=== PATIENT | female | born 1965 | race African-American/Black ===

== ENCOUNTER 2017-02-03 11:14 | Outpatient (RCR) | payer MEDICAID | END 2017-05-04 | disposition home or self-care (01) | LOC: CARD 11:14 | PROVIDERS: ATTEND Nurse Practitioner Family | DX: R55 Syncope and collapse (principal) | CPT/HCPCS: 93225; 93226 ==

== ENCOUNTER → 2017-02-03 | Outpatient (CLI) | payer SELFPAY | LOC: CARD 11:10 | PROVIDERS: ATTEND Nurse Practitioner Family | DX: R55 Syncope and collapse (principal) | CPT/HCPCS: 93306 ==

== ENCOUNTER → 2017-05-15 | Outpatient (CLI) | payer MEDICAID ==
[~2017-05-15] VITALS: Ht 154.9 cm; Wt 53.1 kg
[~2017-05-15] MED LIST: CATHETER FLUSH 10 ML SYR IV PRN
[2017-05-15 09:06] VITALS: BP 125/76
--- NOTE | 2017-05-15 15:56 | STRESS TEST ---
DATE OF SERVICE: 05/15/2017 EXERCISE MYOVIEW STRESS TEST REFERRING PHYSICIAN: Dr. Lalita Vogt, [facility]. FINDINGS: Baseline heart rate is 53. Baseline blood pressure 106/68. Baseline EKG is sinus rhythm with no ischemic changes. SUMMARY: The patient was injected with 10.96 mCi of technetium-99 Myoview and the resting images were obtained. With peak stress level, she was injected with 31.1 mCi of technetium-99 Myoview. She was able to exercise for a total of 9 minutes and 30 seconds on standard Sulaiman protocol. With peak exercise level, blood pressure was 199/92. EKG was showing [address] depression in II, III, aVF, V4 and V5. During recovery, heart rate and blood pressure returned to baseline. EKG returned to baseline. The resting and stress images were reviewed and compared in the short axis, horizontal long axis, and vertical long axis views. Review of the images showed breast attenuation with no significant ischemia or infarction on SPECT images. SSS is 2, SDS 2, TID value 1.05. On the gated images, the left ventricle appeared to be normal size with normal contractility. Calculated ejection fraction 56%. CONCLUSION: 1. Good exercise tolerance, a total of 9 minutes 30 seconds on standard Sulaiman protocol, total of 11.1 METS achieving 95% of maximum expected heart rate. 2. Nondiagnostic EKG changes with exercise, returned to baseline during recovery. 3. Hypertensive response to exercise, returned to baseline during recovery. 4. Breast attenuation with mild apical thinning with no significant ischemia or infarction on SPECT images. 5. Normal left ventricular size with normal contractility, calculated ejection fraction 56%. Job ID: [id number] DocumentID: [id number] Dictated Date: 05/15/2017 12:32:13 Lead Net Software Developer Date: 05/15/2017 15:55:55 Dictated By: PARTH CALERO MD
== END ==
LOC: CARD 07:55
PROVIDERS: ATTEND Internal Medicine Cardiovascular Disease
DX: R07.9 Chest pain, unspecified (principal)
CPT/HCPCS: 78452; 93017

== ENCOUNTER → 2017-05-17 | Outpatient (CLI) | payer MEDICAID ==
[2017-05-17] VITALS (25 sets, daily range): BP systolic 104–142; BP diastolic 72–95
[~2017-05-17] VITALS: Ht 154.9 cm; Wt 53.1 kg
[~2017-05-17] MED LIST changes: -CATHETER FLUSH 10 ML SYR IV PRN; +NS IV 1000 ML 1,000 ML ONE
--- NOTE | 2017-05-17 16:04 | Cardiology Tilt Table Test ---
LAURENCE CAMARGO 05/17/17 1604: Cardiology-Tilt Table Test Tilt Table Test Date 05/17/17 Baseline Vitals Vital Signs Date Time Temp Pulse Resp B/P (MAP) Pulse Ox O2 Delivery O2 Flow Rate FiO2 05/17/17 14:43 45 16 116/78 (91) 97 Vital Signs VS - Last 72 Hours, by Label 05/17/17 05/17/17 05/17/17 05/17/17 14:43 15:09 15:11 15:12 Pulse 45 50 59 50 Resp 16 20 B/P (MAP) 116/78 (91) 116/80 (92) 138/82 (100) 130/76 (94) Pulse Ox 97 99 99 100 05/17/17 05/17/17 05/17/17 05/17/17 15:13 15:14 15:15 15:16 Pulse 49 49 49 48 B/P (MAP) 116/79 (91) 122/72 (89) 123/79 (94) 124/77 (93) Pulse Ox 99 99 99 99 05/17/17 05/17/17 05/17/17 05/17/17 15:17 15:20 15:21 15:22 Pulse 45 43 67 54 B/P (MAP) 123/84 (97) 113/76 (88) 132/94 (107) 142/86 (104) Pulse Ox 98 99 99 99 05/17/17 05/17/17 05/17/17 05/17/17 15:24 15:24 15:26 15:28 Pulse 56 54 58 55 B/P (MAP) 117/82 (94) 113/78 (90) 104/75 (85) 107/86 (93) Pulse Ox 98 98 99 98 05/17/17 05/17/17 05/17/17 05/17/17 15:29 15:30 15:31 15:33 Pulse 54 52 50 47 Resp 18 B/P (MAP) 111/75 (87) 112/83 (93) 109/83 (92) 114/77 (89) Pulse Ox 98 98 100 97 05/17/17 05/17/17 05/17/17 05/17/17 15:34 15:35 15:36 15:37 Pulse 49 51 47 49 B/P (MAP) 115/87 (96) 119/77 (91) 118/85 (96) 125/82 (96) Pulse Ox 98 98 98 99 05/17/17 05/17/17 15:39 15:40 Pulse 50 44 B/P (MAP) 124/79 (94) 118/95 (103) Pulse Ox 98 100 Patient was tilted to 75 degrees for [10] minutes, then returned to supine position, given [2] sublingual nitroglycerin tablets, then tilted again to 75 degrees for [15] minutes. During test, patient was: asymptomatic In Conclusion;: Negative Tilt Table Test Patient had underlying sinus bradycardia with HR in the mid 40's. Consider event monitor for further monitoring. This is Laurence Beckford PA-C as a scribe for Dr. Rea. PARTH REA MD 05/17/17 1624: Cardiology-Tilt Table Test Tilt Table Test Negative tilt table test despite Baseline bradycardia that persisted throughout test LAURENCE CAMARGO May 17, 2017 16:04 PARTH REA MD May 17, 2017 16:24
== END ==
LOC: CARD 14:16
PROVIDERS: ATTEND Internal Medicine Cardiovascular Disease
DX: R07.9 Chest pain, unspecified (principal)
CPT/HCPCS: 93660

== ENCOUNTER 2018-03-12 07:17 | Emergency (ER) | payer MEDICAID ==
[~2018-03-12] VITALS: Ht 154.9 cm; Wt 53.1 kg
--- OUTSIDE RECORDS SUMMARY | 2018-03-12 07:23 | XMS REPORT ---
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 Active 729868397 Problem Menopausal hot flushes N95.1 Active 993321444 Problem Syncope, unspecified syncope type R55 Active 686155661 Problem Bradycardia R00.1 Active 20007207 Problem Tobacco abuse counseling Z71.6 Active 650873936 Problem Tobacco abuse Z72.0 Active 804790444 ALLERGIES No Information ENCOUNTERS Encounter Location Date Diagnosis [facility] [id number] [place] [address] Jan, [facility] [id number] [place] [address] 41890- 8670 Dec, [facility] [id number] [place] [address]- 978[address] Dec, S/P placement of cardiac pacemaker Z95.0 and Post-operative pain G89.18 [facility] [id number] [place] [address]15- [address]357 Dec, [facility] [address] [address] Dec, Postsurgical cardiac pacemaker in situ Z95.0 [facility] [id number] [place] [address]11- [address] Nov, [facility] [address] [place] [address] Oct, [facility] [address] [address] Sep, Bradycardia R00.1 ; Seizure R56.9 and Menopausal hot flushes N95.1 [place] [address] [address] August, Hypercholesteremia E78.00 ; Bradycardia R00.1 ; Anxiety F41.9 ; Absence seizure G40.A09 ; Tobacco abuse Z72.0 and Tobacco abuse counseling Z71.6 [place] [address] [address] Apr, [place] [address] [address] Apr, Chest pain in adult R07.9 ; Syncope, unspecified syncope type R55 ; Tobacco use Z72.0 and Hyperlipidemia, unspecified hyperlipidemia type E78.5 [facility] [address] [address] Feb, Encounter to establish care Z76.89 ; Syncope, unspecified syncope type R55 ; Bradycardia R00.1 ; Anxiety F41.9 and Hypercholesteremia E78.00 [place] [id number] [place] [address] 18[address]- 7862 Jan, [facility] [address] [address] Jan, Menopause syndrome N95.1 ; Absence seizure G40.A09 and Syncope, unspecified syncope type R55 [facility] [address] [address] Dec, [facility] [address] [address] Dec, Anxiety F41.9 [facility] [address] [address]- [address] Jun, [facility] [address] [facility] [id number] [address] Jun, [facility] [address] [id number] [address] Jun, [facility] [address] [facility] [id number], [place] [address] Jun, [facility] [address] [id number] [address] Apr, IMMUNIZATIONS No Known Immunizations SOCIAL HISTORY Never Assessed REASON FOR VISIT Requests return call PLAN OF CARE VITAL SIGNS MEDICATIONS Unknown Medications RESULTS No Results PROCEDURES No Known procedures INSTRUCTIONS MEDICATIONS ADMINISTERED No Known Medications MEDICAL (GENERAL) HISTORY Type Description Date Medical History uterine cancer( 1985) Medical History menopause Surgical History tubal ligation 2000 Surgical History section 2000 Surgical History Fx R ankle 2003 Surgical History pacemaker 2018 Hospitalization History Surgery(s)/Childbirth(s) only
--- OUTSIDE RECORDS SUMMARY | 2018-03-12 07:23 | XMS REPORT ---
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 Active 162344315 Problem Menopausal hot flushes N95.1 Active 334613116 Problem Syncope, unspecified syncope type R55 Active 335456176 Problem Bradycardia R00.1 Active 12641602 Problem Tobacco abuse counseling Z71.6 Active 515275431 Problem Tobacco abuse Z72.0 Active 167899005 ALLERGIES No Known Allergies ENCOUNTERS Encounter Location Date Diagnosis [place] [address] [address] Jan, S/P placement of cardiac pacemaker Z95.0 ; Post-operative pain G89.18 and Trapezius muscle spasm M62.838 [place] [address] [place] [address]79- [address] Dec, [facility] [id number] [place] [address]45- 6178 Dec, S/P placement of cardiac pacemaker Z95.0 and Post-operative pain G89.18 [facility] [id number] [place] [address]- [address] Dec, [facility] [id number] [place] [address]90- 1547 Dec, Postsurgical cardiac pacemaker in situ Z95.0 [place] [address] [place] [address] Nov, [facility] [id number] [place] [address]132- 3259 Oct, [place] [id number] [place] [address] 93442- 2763 Sep, Bradycardia R00.1 ; Seizure R56.9 and Menopausal hot flushes N95.1 [place] [address] [address]- [address] August, Hypercholesteremia E78.00 ; Bradycardia R00.1 ; Anxiety F41.9 ; Absence seizure G40.A09 ; Tobacco abuse Z72.0 and Tobacco abuse counseling Z71.6 [place] [id number] [place] [address] 47516- 7266 Apr, [place] [address] [address] Apr, Chest pain in adult R07.9 ; Syncope, unspecified syncope type R55 ; Tobacco use Z72.0 and Hyperlipidemia, unspecified hyperlipidemia type E78.5 [place] [address] [address]- [address] Feb, Encounter to establish care Z76.89 ; Syncope, unspecified syncope type R55 ; Bradycardia R00.1 ; Anxiety F41.9 and Hypercholesteremia E78.00 [place] [id number] [place] [address] 96831- 8505 Jan, [place] [id number] [place] [address] 39787- 7876 Jan, Menopause syndrome N95.1 ; Absence seizure G40.A09 and Syncope, unspecified syncope type R55 [place] [address] [address] [id number] [place] [address] 34135- 9090 Dec, [facility] [address] [address] Dec, Anxiety F41.9 [facility] [address] [facility] [id number] [address] Jun, [facility] [address] [facility] [id number] [address] Jun, [facility] [address] [facility] [id number] [address] Jun, [facility] [address] [id number] [address] Jun, [facility] [address] [facility] [id number] [address] Apr, IMMUNIZATIONS No Known Immunizations SOCIAL HISTORY Never Assessed REASON FOR VISIT Anxiety.-awoods PLAN OF CARE Activity Details Follow Up 3 Months, prn Reason:CHM/w/ Carmina VITAL SIGNS Height 61 in 2017-12-26 Weight 115.8 lbs 2017-12-26 Temperature 98.6 degrees Fahrenheit 2017-12-26 Heart Rate 62 bpm 2017-12-26 Respiratory Rate 18 2017-12-26 BMI 21.88 kg/m2 2017-12-26 Blood pressure systolic 102 mmHg 2017-12-26 Blood pressure diastolic 64 mmHg 2017-12-26 MEDICATIONS Medication Instructions Dosage Frequency Start Date End Date Duration Status Paxil 20 mg Orally Once a day 1 tablet in the morning 24h Sep, 30 day(s) Active Ibuprofen 800 MG Orally Three times a day 1 tablet with food or milk as needed 8h Jan, 30 days Active Zonisamide 100 mg Orally Once a day at bedtime 3 capsule Active Baclofen 10 mg Orally Three times a day 1 tablet with food or milk as needed 8h Dec, Dec, 14 days Active Hydrocodone-Acetaminophen 5-325 MG Orally every 6 hrs 1 tablet as needed 6h Dec, Dec, 14 days Active RESULTS No Results PROCEDURES No Known procedures INSTRUCTIONS MEDICATIONS ADMINISTERED No Known Medications MEDICAL (GENERAL) HISTORY Type Description Date Medical History uterine cancer( 1985) Medical History menopause Medical History bradycardia- had pacemaker placed in November for this Surgical History tubal ligation 2000 Surgical History section 2000 Surgical History Fx R ankle 2003 Surgical History pacemaker 2018 Hospitalization History Surgery(s)/Childbirth(s) only Hospitalization History pacemaker placed- one night stay Nov 2017
--- OUTSIDE RECORDS SUMMARY | 2018-03-12 07:23 | XMS REPORT ---
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 Active 056166467 Problem Menopausal hot flushes N95.1 Active 287896095 Problem Syncope, unspecified syncope type R55 Active 759176808 Problem Bradycardia R00.1 Active 08255608 Problem Tobacco abuse counseling Z71.6 Active 166633253 Problem Tobacco abuse Z72.0 Active 155099861 ALLERGIES No Known Allergies ENCOUNTERS Encounter Location Date Diagnosis [place] [address] [address] Jan, S/P placement of cardiac pacemaker Z95.0 ; Post-operative pain G89.18 and Trapezius muscle spasm M62.838 [place] [address] [place] [address]80- [address] Dec, [facility] [place] [id number] [place] [address]353- 2609 Dec, S/P placement of cardiac pacemaker Z95.0 and Post-operative pain G89.18 [facility] [place] [id number] [place] [address] 15148- 8851 Dec, [facility] [place] [id number] [place] [address] 54141- 6712 Dec, Postsurgical cardiac pacemaker in situ Z95.0 [place] [address] [place] [address] 12380- 9874 Nov, [facility] [place] [id number] [place] [address] 58964- 9270 Oct, [facility] [place] [id number] [place] [address] 01228- 2373 Sep, Bradycardia R00.1 ; Seizure R56.9 and Menopausal hot flushes N95.1 [place] [id number] [place] [address] 63919- 36[address] August, Hypercholesteremia E78.00 ; Bradycardia R00.1 ; Anxiety F41.9 ; Absence seizure G40.A09 ; Tobacco abuse Z72.0 and Tobacco abuse counseling Z71.6 [place] [id number] [place] [address] 96090- 7721 Apr, [place] [address] [address]- [address] Apr, Chest pain in adult R07.9 ; Syncope, unspecified syncope type R55 ; Tobacco use Z72.0 and Hyperlipidemia, unspecified hyperlipidemia type E78.5 [place] [id number] [place] [address]15- 3032 Feb, Encounter to establish care Z76.89 ; Syncope, unspecified syncope type R55 ; Bradycardia R00.1 ; Anxiety F41.9 and Hypercholesteremia E78.00 [place] [id number] [place] [address] 04793- 4895 Jan, [place] [id number] [place] [address] 40336- 9761 Jan, Menopause syndrome N95.1 ; Absence seizure G40.A09 and Syncope, unspecified syncope type R55 [place] [id number] [place] [address] 85925- 6402 Dec, [facility] [id number] [place] [address]65 -[address]117 Dec, Anxiety F41.9 [facility] [place] [address] [facility] [id number] [place] [address]- [address] Jun, [facility] [place] [address] [facility] [id number] [address] Jun, [facility] [place] [address] [facility] [id number], [place] [address]- [address] Jun, [facility] [place] [address] [facility] [id number], [place] [address] Jun, [facility] [place] [address] [facility] [id number], [place] [address]- [address]28 Apr, IMMUNIZATIONS No Known Immunizations SOCIAL HISTORY Never Assessed REASON FOR VISIT Internal Transfer- BARBARA King PLAN OF CARE Activity Details Follow Up 1wk Reason:trigger pt injections VITAL SIGNS Height 61 in 2018-01-18 Weight 103.6 lbs 2018-01-18 Temperature 98.4 degrees Fahrenheit 2018-01-18 Heart Rate 82 bpm 2018-01-18 Respiratory Rate 18 2018-01-18 BMI 19.57 kg/m2 2018-01-18 Blood pressure systolic 132 mmHg 2018-01-18 Blood pressure diastolic 74 mmHg 2018-01-18 MEDICATIONS Medication Instructions Dosage Frequency Start Date End Date Duration Status Zonisamide 100 mg Orally Once a day at bedtime 3 capsule Active Hydrocodone-Acetaminophen 5-325 MG Orally 2 times a day 1 tablet as needed 12h Jan, Jan, 14 days Active Ibuprofen 800 MG Orally Three times a day 1 tablet with food or milk as needed 8h Jan, Jan, 10 days Active Baclofen 10 MG Orally 3 times a day 1 tablet with food or milk 8h 24 Jan 10 days Active RESULTS No Results PROCEDURES No [...]
[2018-03-12] MEDS ORDERED: NS IV 1000 ML 1,000 ML IV ONE (07:24)
--- OUTSIDE RECORDS SUMMARY | 2018-03-12 07:24 | XMS REPORT ---
Author Author DOUGLASNICOLA ReedELE Organization [facility] Address [address] [place] [address] Care Team Providers Care Production Grader Name Role Phone KARRI DOUGLAS Unavailable PROBLEMS Type Condition ICD9-CM Code LGX22-LV Code Onset Dates Condition Status SNOMED Code Problem Anxiety F41.9 Active 11087016 Problem Hypercholesteremia E78.00 Active 09015623 Problem Menopausal hot flushes N95.1 Active 222124155 Problem Tobacco abuse counseling Z71.6 Active 365464792 Problem Bradycardia R00.1 Active 43888829 Problem Absence seizure G40.A09 Active 27602389 Problem Tobacco abuse Z72.0 Active 589796128 Problem Syncope, unspecified syncope type R55 Active 851674852 ALLERGIES No Known Allergies ENCOUNTERS Encounter Location Date Diagnosis [place] [address] [address] Dec, [place] [address] [address] Oct, [place] [address] [address] Sep, Bradycardia R00.1 ; Seizure R56.9 and Menopausal hot flushes N95.1 [facility] [id number] [place] [address]- [address] August, Hypercholesteremia E78.00 ; Bradycardia R00.1 ; Anxiety F41.9 ; Absence seizure G40.A09 ; Tobacco abuse Z72.0 and Tobacco abuse counseling Z71.6 [place] [id number] [place] [address]32- 85[address] Apr, [place] [address] [address]- [address] Apr, Chest pain in adult R07.9 ; Syncope, unspecified syncope type R55 ; Tobacco use Z72.0 and Hyperlipidemia, unspecified hyperlipidemia type E78.5 [facility] [id number] [place] [address]62- 8858 Feb, Encounter to establish care Z76.89 ; Syncope, unspecified syncope type R55 ; Bradycardia R00.1 ; Anxiety F41.9 and Hypercholesteremia E78.00 [place] [address] [address]- [address] Jan, [place] [address] [address]- [address] Jan, Menopause syndrome N95.1 ; Absence seizure G40.A09 and Syncope, unspecified syncope type R55 [place] [address] [address]- [address] Dec, [facility] [address] [address] Dec, Anxiety F41.9 [place] [address] [address]- 4003 Jun, [place] [address] [id number] [place] [address]- 4027 Jun, [place] [address] [address] [id number] [place] [address] 26[address]- 8485 Jun, [place] [address] [address]- 4098 Jun, [place] [address] [address] [id number] [place] [address] 81542- 5590 Apr, IMMUNIZATIONS No Known Immunizations SOCIAL HISTORY Never Assessed REASON FOR VISIT cholesterol follow up, needs labs drawn per Dr. Travis. Daly, RN PLAN OF CARE Activity Details Follow Up 3 Months, prn Reason:CHM/Anxiety VITAL SIGNS Height 61 in 2017-08-17 Weight 111.1 lbs 2017-08-17 Temperature 98.1 degrees Fahrenheit 2017-08-17 Heart Rate 58 bpm 2017-08-17 Respiratory Rate 18 2017-08-17 BMI 20.99 kg/m2 2017-08-17 Blood pressure systolic 102 mmHg 2017-08-17 Blood pressure diastolic 64 mmHg 2017-08-17 MEDICATIONS Medication Instructions Dosage Frequency Start Date End Date Duration Status Zonisamide 100 mg Orally Once a day at bedtime 2 capsule Active Ibuprofen 800 MG Orally Three times a day 1 tablet with food or milk as needed 8h Active RESULTS No Results PROCEDURES No Known procedures INSTRUCTIONS MEDICATIONS ADMINISTERED No Known Medications MEDICAL (GENERAL) HISTORY Type Description Date Medical History uterine cancer( 1985) Medical History menopause Surgical History tubal ligation 2000 Surgical History section 2000 Surgical History Fx R ankle 2004 Hospitalization History Surgery(s)/Childbirth(s) only
--- OUTSIDE RECORDS SUMMARY | 2018-03-12 07:24 | XMS REPORT ---
Author Author KARRI DOUGLAS Organization [facility] Address [address] [place] [address] Care Team Providers Care Trade Show Manager Name Role Phone KARRI DOUGLAS Unavailable PROBLEMS Type Condition ICD9-CM Code DRS84-EQ Code Onset Dates Condition Status SNOMED Code Problem Anxiety F41.9 Active 50746425 Problem Hypercholesteremia E78.00 Active 82477339 Problem Tobacco abuse counseling Z71.6 Active 671762374 Problem Tobacco abuse Z72.0 Active 439943266 Problem Menopause syndrome N95.1 Active 650199616 Problem Absence seizure G40.A09 Active 76678639 Problem Syncope, unspecified syncope type R55 Active 475974879 Problem Bradycardia R00.1 Active 38402048 ALLERGIES No Known Allergies ENCOUNTERS Encounter Location Date Diagnosis [place] [id number] [place] [address]58- 4956 August, Hypercholesteremia E78.00 ; Bradycardia R00.1 ; Anxiety F41.9 ; Absence seizure G40.A09 ; Tobacco abuse Z72.0 and Tobacco abuse counseling Z71.6 [place] [id number] [place] [address] 40225- 2871 Apr, [place] [address] [address]38- [address] Apr, Chest pain in adult R07.9 ; Syncope, unspecified syncope type R55 ; Tobacco use Z72.0 and Hyperlipidemia, unspecified hyperlipidemia type E78.5 [place] [address] [address]226- [address]3 Feb, Encounter to establish care Z76.89 ; Syncope, unspecified syncope type R55 ; Bradycardia R00.1 ; Anxiety F41.9 and Hypercholesteremia E78.00 [place] [address] [address] Jan, [facility] [address] [place] [address] 09292- 9161 Jan, Menopause syndrome N95.1 ; Absence seizure G40.A09 and Syncope, unspecified syncope type R55 [facility] [address] [address] Dec, [facility] [address] [place] [address] 42090 -9991 Dec, Anxiety F41.9 [facility] [id number] [place] [address] 70941- 8580 Jun, [facility] [id number] [place] [address] 00003- 2596 Jun, [facility] [id number] [place] [address] 57012- 2539 Jun, [facility] [address] [place] [address] 04946- 1489 Jun, [facility] [id number] [place] [address] 95426- 6877 Apr, IMMUNIZATIONS No Known Immunizations SOCIAL HISTORY Never Assessed REASON FOR VISIT Establish Care---DBennettRN PLAN OF CARE Activity Details Follow Up 3 Months Reason:[facility] VITAL SIGNS Height 61 in 2017-02-16 Weight 110 lbs 2017-02-16 Temperature 98.0 degrees Fahrenheit 2017-02-16 Heart Rate 60 bpm 2017-02-16 Respiratory Rate 20 2017-02-16 BMI 20.78 kg/m2 2017-02-16 Blood pressure systolic 84 mmHg 2017-02-16 Blood pressure diastolic 62 mmHg 2017-02-16 MEDICATIONS No Known Medications RESULTS Name Result Date Reference Range Carotid Duplex 2017-02-21 PROCEDURES No Known procedures INSTRUCTIONS MEDICATIONS ADMINISTERED No Known Medications MEDICAL (GENERAL) HISTORY Type Description Date Medical History uterine cancer( 1985) Medical History menopause Surgical History tubal ligation 2000 Surgical History section 2000 Surgical History Fx R ankle 2004 Hospitalization History Surgery(s)/Childbirth(s) only
--- OUTSIDE RECORDS SUMMARY | 2018-03-12 07:24 | XMS REPORT ---
Author Author MISAEL KARRI [facility] Address [address] [place] [address] Care Team Providers Care Machine Stapler Name Role Phone KARRI DOUGLAS Unavailable PROBLEMS Type Condition ICD9-CM Code BAQ03-VB Code Onset Dates Condition Status SNOMED Code Problem Hypercholesteremia E78.00 Active 62105250 Problem Absence seizure G40.A09 Active 41701680 Problem Anxiety F41.9 Active 41396341 Problem Postsurgical cardiac pacemaker in situ Z95.0 Active 743871520 Problem Menopausal hot flushes N95.1 Active 402644085 Problem Syncope, unspecified syncope type R55 Active 447236573 Problem Bradycardia R00.1 Active 61703694 Problem Tobacco abuse counseling Z71.6 Active 607542598 Problem Tobacco abuse Z72.0 Active 626846325 ALLERGIES No Information ENCOUNTERS Encounter Location Date Diagnosis [facility] [id number] [place] [address] 77055- 3850 Jan, [facility] [id number] [place] [address] 17386- 2603 Dec, [facility] [id number] [place] [address] 90280- 4231 Dec, S/P placement of cardiac pacemaker Z95.0 and Post-operative pain G89.18 [facility] [id number] [place] [address] 18414- 0625 Dec, [facility] [address] 42641- 3032 Dec, Postsurgical cardiac pacemaker in situ Z95.0 [facility] [id number] [place] [address] 14894- 4724 Nov, [facility] [address] [place] [address]- 3546 Oct, [facility] [address] 31450- 3630 Sep, Bradycardia R00.1 ; Seizure R56.9 and Menopausal hot flushes N95.1 [place] [address] 19649- 4498 August, Hypercholesteremia E78.00 ; Bradycardia R00.1 ; Anxiety F41.9 ; Absence seizure G40.A09 ; Tobacco abuse Z72.0 and Tobacco abuse counseling Z71.6 [place] [address] 52435- 3035 Apr, [place] [address] 93472- 4659 Apr, Chest pain in adult R07.9 ; Syncope, unspecified syncope type R55 ; Tobacco use Z72.0 and Hyperlipidemia, unspecified hyperlipidemia type E78.5 [facility] [address] 35525- 1834 Feb, Encounter to establish care Z76.89 ; Syncope, unspecified syncope type R55 ; Bradycardia R00.1 ; Anxiety F41.9 and Hypercholesteremia E78.00 [place] [id number] [place] [address] 14387- 7816 Jan, [facility] [address] 34897- 8599 Jan, Menopause syndrome N95.1 ; Absence seizure G40.A09 and Syncope, unspecified syncope type R55 [facility] [address] 48530- 1754 Dec, [facility] [address] 54442 -9781 Dec, Anxiety F41.9 [facility] [address] 98681- 4242 Jun, [facility] [address] [facility] [id number] [address] Jun, [facility] [id number] Jun, [facility] [address] [facility] [id number] [address] 2352 Jun, [facility] [id number] [address]7 Apr, IMMUNIZATIONS No Known Immunizations SOCIAL HISTORY Never Assessed REASON FOR VISIT PLAN OF CARE VITAL SIGNS MEDICATIONS Unknown Medications RESULTS No Results PROCEDURES No Known procedures INSTRUCTIONS MEDICATIONS ADMINISTERED No Known Medications MEDICAL (GENERAL) HISTORY Type Description Date Medical History uterine cancer( 1985) Medical History menopause Surgical History tubal ligation 2000 Surgical History section 2000 Surgical History Fx R ankle 2004 Surgical History pacemaker 2018 Hospitalization History Surgery(s)/Childbirth(s) only
--- OUTSIDE RECORDS SUMMARY | 2018-03-12 07:24 | XMS REPORT ---
Author Author KARRI DOUGLAS Organization [facility] Address [address] [place] [address] Care Team Providers Care Predictive Maintenance Technician Name Role Phone KARRI DOUGLAS Unavailable PROBLEMS Type Condition ICD9-CM Code CJL02-KQ Code Onset Dates Condition Status SNOMED Code Problem Anxiety F41.9 Active 54793927 Problem Hypercholesteremia E78.00 Active 62794137 Problem Tobacco abuse counseling Z71.6 Active 467960502 Problem Tobacco abuse Z72.0 Active 287363803 Problem Menopause syndrome N95.1 Active 078215382 Problem Absence seizure G40.A09 Active 20617135 Problem Syncope, unspecified syncope type R55 Active 486970121 Problem Bradycardia R00.1 Active 82738329 ALLERGIES No Known Allergies ENCOUNTERS Encounter Location Date Diagnosis [place] [id number] [place] [address] 55741- 3023 August, Hypercholesteremia E78.00 ; Bradycardia R00.1 ; Anxiety F41.9 ; Absence seizure G40.A09 ; Tobacco abuse Z72.0 and Tobacco abuse counseling Z71.6 [place] [id number] [place] [address] 36601- 1179 Apr, [place] [address] 25790- 4186 Apr, Chest pain in adult R07.9 ; Syncope, unspecified syncope type R55 ; Tobacco use Z72.0 and Hyperlipidemia, unspecified hyperlipidemia type E78.5 [place] [address] 84813- 6616 Feb, Encounter to establish care Z76.89 ; Syncope, unspecified syncope type R55 ; Bradycardia R00.1 ; Anxiety F41.9 and Hypercholesteremia E78.00 [place] [address], [place] [address] Jan, [facility] [address] [place] [address] 40355- 7461 Jan, Menopause syndrome N95.1 ; Absence seizure G40.A09 and Syncope, unspecified syncope type R55 [facility] [address], [place] [address]- 3316 Dec, [facility] [id number] [place] [address] 53545 -9032 Dec, Anxiety F41.9 [facility] [id number] [place] [address] 72801- 7074 Jun, [facility] [id number] [place] [address] 92371- 7306 Jun, [facility] [id number] [place] [address] 32174- 1190 Jun, [facility] [address] [place] [address] 02930- 7309 Jun, [facility] [id number] [place] [address] 14256- 2326 Apr, IMMUNIZATIONS No Known Immunizations SOCIAL HISTORY Never Assessed REASON FOR VISIT [facility] Updated - CBowmanRN PLAN OF CARE VITAL SIGNS MEDICATIONS No Known Medications RESULTS No Results PROCEDURES No Known procedures INSTRUCTIONS MEDICATIONS ADMINISTERED No Known Medications MEDICAL (GENERAL) HISTORY Type Description Date Medical History uterine cancer( 1985) Medical History menopause Surgical History tubal ligation 2000 Surgical History section 2000 Surgical History Fx R ankle 2004 Hospitalization History Surgery(s)/Childbirth(s) only
--- OUTSIDE RECORDS SUMMARY | 2018-03-12 07:24 | XMS REPORT ---
Author Author DOUGLASKARRI Reed [facility] Address [address] [place] [address] Care Team Providers Care High School Business Teacher Name Role Phone KARRI DOUGLAS Unavailable PROBLEMS Type Condition ICD9-CM Code EXD29-UF Code Onset Dates Condition Status SNOMED Code Problem Hypercholesteremia E78.00 Active 49054927 Problem Absence seizure G40.A09 Active 42580264 Problem Anxiety F41.9 Active 72846427 Problem Postsurgical cardiac pacemaker in situ Z95.0 Active 654000452 Problem Menopausal hot flushes N95.1 Active 184496159 Problem Syncope, unspecified syncope type R55 Active 244503961 Problem Bradycardia R00.1 Active 73088118 Problem Tobacco abuse counseling Z71.6 Active 065404622 Problem Tobacco abuse Z72.0 Active 438768687 ALLERGIES No Information ENCOUNTERS Encounter Location Date Diagnosis [facility] [id number] [place] [address] 84370- 7469 Dec, [facility] [address] 45247- 4220 Dec, [facility] [id number] [place] [address] 42737- 7899 Dec, Postsurgical cardiac pacemaker in situ Z95.0 [facility] [id number] [place] [address] 02757- 2760 Nov, [facility] [id number] [place] [address] 55593- 6521 Oct, [facility] [id number] [place] [address] 38006- 4595 Sep, Bradycardia R00.1 ; Seizure R56.9 and Menopausal hot flushes N95.1 [facility] [address] [place] [address]- 1393 August, Hypercholesteremia E78.00 ; Bradycardia R00.1 ; Anxiety F41.9 ; Absence seizure G40.A09 ; Tobacco abuse Z72.0 and Tobacco abuse counseling Z71.6 [facility] [id number] [place] [address] 75787- 8902 Apr, [facility] [address] 60445- 8899 Apr, Chest pain in adult R07.9 ; Syncope, unspecified syncope type R55 ; Tobacco use Z72.0 and Hyperlipidemia, unspecified hyperlipidemia type E78.5 [place] [address] 99995- 5529 Feb, Encounter to establish care Z76.89 ; Syncope, unspecified syncope type R55 ; Bradycardia R00.1 ; Anxiety F41.9 and Hypercholesteremia E78.00 [place] [address] 45932- 5145 Jan, [facility] [address] 23174- 6196 Jan, Menopause syndrome N95.1 ; Absence seizure G40.A09 and Syncope, unspecified syncope type R55 [facility] [id number] [place] [address] 64610- 5459 Dec, [facility] [address] 43202 -5267 Dec, Anxiety F41.9 [facility] [address] 74846- 5192 Jun, [facility] [address] 81988- 4548 Jun, [facility] [address] 43730- 3746 Jun, [facility] [address] 07756- 6279 Jun, [facility] [address] [facility] [id number] [address]- 7348 Apr, IMMUNIZATIONS No Known Immunizations SOCIAL HISTORY Never Assessed REASON FOR VISIT Referral PLAN OF CARE VITAL SIGNS MEDICATIONS Unknown Medications RESULTS No Results PROCEDURES No Known procedures INSTRUCTIONS MEDICATIONS ADMINISTERED No Known Medications MEDICAL (GENERAL) HISTORY Type Description Date Medical History uterine cancer( 1985) Medical History menopause Surgical History tubal ligation 2000 Surgical History section 2000 Surgical History Fx R ankle 2004 Hospitalization History Surgery(s)/Childbirth(s) only
--- OUTSIDE RECORDS SUMMARY | 2018-03-12 07:24 | XMS REPORT ---
Author Author DOUGLASKARRI Reed Organization [facility] Address [address] [place] [address] Care Team Providers Care Body Finisher Name Role Phone KARRI DOUGLAS Unavailable PROBLEMS Type Condition ICD9-CM Code NEO24-QI Code Onset Dates Condition Status SNOMED Code Problem Anxiety F41.9 Active 60789188 Problem Hypercholesteremia E78.00 Active 63172997 Problem Menopausal hot flushes N95.1 Active 928052986 Problem Tobacco abuse counseling Z71.6 Active 195992739 Problem Bradycardia R00.1 Active 84170591 Problem Absence seizure G40.A09 Active 50073705 Problem Tobacco abuse Z72.0 Active 607150265 Problem Syncope, unspecified syncope type R55 Active 874471003 ALLERGIES No Known Allergies ENCOUNTERS Encounter Location Date Diagnosis [place] [id number] [place] [address] 71776- 0083 Dec, [place] [address] 29514- 3756 Dec, [place] [id number] [place] [address] 44403- 9121 Nov, [place] [id number] [place] [address] 18733- 7276 Oct, [place] [id number] [place] [address] 28033- 3115 Sep, Bradycardia R00.1 ; Seizure R56.9 and Menopausal hot flushes N95.1 [facility] [address] 21069- 5686 August, Hypercholesteremia E78.00 ; Bradycardia R00.1 ; Anxiety F41.9 ; Absence seizure G40.A09 ; Tobacco abuse Z72.0 and Tobacco abuse counseling Z71.6 [facility] [address] [place] [address] 85238- 6318 Apr, [facility] [id number] [place] [address] 53827- 4647 Apr, Chest pain in adult R07.9 ; Syncope, unspecified syncope type R55 ; Tobacco use Z72.0 and Hyperlipidemia, unspecified hyperlipidemia type E78.5 [facility] [id number] [place] [address] 61620- 5215 Feb, Encounter to establish care Z76.89 ; Syncope, unspecified syncope type R55 ; Bradycardia R00.1 ; Anxiety F41.9 and Hypercholesteremia E78.00 [place] [id number] [place] [address] 80256- 1750 Jan, [place] [id number] [place] [address] 08565- 8899 Jan, Menopause syndrome N95.1 ; Absence seizure G40.A09 and Syncope, unspecified syncope type R55 [facility] [id number] [place] [address] 82442- 6135 Dec, [facility] [id number] [place] [address] 46388 -4127 Dec, Anxiety F41.9 [facility] [id number] [place] [address] 10400- 2027 Jun, [facility] [id number] [place] [address] 08944- 4750 Jun, [facility] [id number] [place] [address] 94661- 9412 Jun, [place] [id number] [place] [address] 14087- 0380 Jun, [facility] [id number] [place] [address] 93621- 7023 Apr, IMMUNIZATIONS No Known Immunizations SOCIAL HISTORY Never Assessed REASON FOR VISIT Hospital f/u, had MRI during MRI had seizure and ended up in the ED with bradycardia. Needs referral. Daly RN PLAN OF CARE Activity Details Follow Up 3 Months, prn Reason:CHM/seizures VITAL SIGNS Height 61 in 2017-10-10 Weight 110.6 lbs 2017-10-10 Temperature 97.5 degrees Fahrenheit 2017-10-10 Heart Rate 61 bpm 2017-10-10 Respiratory Rate 18 2017-10-10 BMI 20.90 kg/m2 2017-10-10 Blood pressure systolic 100 mmHg 2017-10-10 Blood pressure diastolic 58 mmHg 2017-10-10 MEDICATIONS Medication Instructions Dosage Frequency Start Date End Date Duration Status Zonisamide 100 mg Orally Once a day at bedtime 2 capsule Active Ibuprofen 800 MG Orally Three times a day 1 tablet with food or milk as needed 8h Jan, 30 days Active Paxil 20 mg Orally Once a day 1 tablet in the morning 24h Sep, 30 day(s) Active RESULTS No Results PROCEDURES No Known procedures INSTRUCTIONS MEDICATIONS ADMINISTERED No Known Medications MEDICAL (GENERAL) HISTORY Type Description Date Medical History uterine cancer( 1985) Medical History menopause Surgical History tubal ligation 2000 Surgical History section 2000 Surgical History Fx R ankle 2003 Hospitalization History Surgery(s)/Childbirth(s) only
--- OUTSIDE RECORDS SUMMARY | 2018-03-12 07:24 | XMS REPORT ---
Author Author MISAEL KARRI [facility] Address [address] [place] [address] Care Team Providers Care Charge Entry Clerk Name Role Phone KARRI DOUGLAS Unavailable PROBLEMS Type Condition ICD9-CM Code BII90-LW Code Onset Dates Condition Status SNOMED Code Problem Hypercholesteremia E78.00 Active 28439572 Problem Absence seizure G40.A09 Active 06016025 Problem Anxiety F41.9 Active 47079398 Problem Postsurgical cardiac pacemaker in situ Z95.0 Active 728030972 Problem Menopausal hot flushes N95.1 Active 380265507 Problem Syncope, unspecified syncope type R55 Active 557301826 Problem Bradycardia R00.1 Active 99588651 Problem Tobacco abuse counseling Z71.6 Active 924512117 Problem Tobacco abuse Z72.0 Active 987996940 ALLERGIES No Information ENCOUNTERS Encounter Location Date Diagnosis [facility] [id number] [place] [address] 54836- 3733 Jan, [facility] [id number] [place] [address] 09723- 0918 Dec, [facility] [id number] [place] [address] 75014- 9247 Dec, S/P placement of cardiac pacemaker Z95.0 and Post-operative pain G89.18 [facility] [id number] [place] [address] 49488- 4095 Dec, [facility] [address] 12321- 2595 Dec, Postsurgical cardiac pacemaker in situ Z95.0 [facility] [id number] [place] [address] 17637- 1379 Nov, [facility] [address] [place] [address]- 0232 Oct, [facility] [address] 60773- 2427 Sep, Bradycardia R00.1 ; Seizure R56.9 and Menopausal hot flushes N95.1 [place] [address] 74708- 2822 August, Hypercholesteremia E78.00 ; Bradycardia R00.1 ; Anxiety F41.9 ; Absence seizure G40.A09 ; Tobacco abuse Z72.0 and Tobacco abuse counseling Z71.6 [place] [address] 93907- 1698 Apr, [place] [address] 36342- 8880 Apr, Chest pain in adult R07.9 ; Syncope, unspecified syncope type R55 ; Tobacco use Z72.0 and Hyperlipidemia, unspecified hyperlipidemia type E78.5 [facility] [address] 42159- 7257 Feb, Encounter to establish care Z76.89 ; Syncope, unspecified syncope type R55 ; Bradycardia R00.1 ; Anxiety F41.9 and Hypercholesteremia E78.00 [place] [id number] [place] [address] 96125- 2476 Jan, [facility] [address] 15575- 3769 Jan, Menopause syndrome N95.1 ; Absence seizure G40.A09 and Syncope, unspecified syncope type R55 [facility] [address] 41307- 2763 Dec, [facility] [address] 10026 -1018 Dec, Anxiety F41.9 [facility] [address] 13266- 1508 Jun, [facility] [address] [facility] [id number] [address]- 4210 Jun, [facility] [address] [id number] 8411 Jun, [facility] [address] [facility] [id number] [address]- 8416 Jun, [facility] [address] [id number]- 4507 Apr, IMMUNIZATIONS No Known Immunizations SOCIAL HISTORY Never Assessed REASON FOR VISIT pain medicine PLAN OF CARE VITAL SIGNS MEDICATIONS Unknown [...]
--- OUTSIDE RECORDS SUMMARY | 2018-03-12 07:24 | XMS REPORT ---
Author Author KATHY AUGUSTINE Organization [facility] Address [address] [place] [address] Care Team Providers Care Customer Service Technician Name Role Phone KATHY AUGUSTINE Unavailable PROBLEMS Type Condition ICD9-CM Code ZDB07-QU Code Onset Dates Condition Status SNOMED Code Problem Hypercholesteremia E78.00 Active 95057905 Problem Absence seizure G40.A09 Active 84713226 Problem Anxiety F41.9 Active 50440226 Problem Postsurgical cardiac pacemaker in situ Z95.0 Active 835022676 Problem Menopausal hot flushes N95.1 Active 218226595 Problem Syncope, unspecified syncope type R55 Active 679792174 Problem Bradycardia R00.1 Active 06959219 Problem Tobacco abuse counseling Z71.6 Active 564420870 Problem Tobacco abuse Z72.0 Active 386420733 ALLERGIES No Known Allergies ENCOUNTERS Encounter Location Date Diagnosis [facility] [id number] [place] [address] 8[address]78- 9137 Jan, [facility] [id number] [place] [address] 11808- 8109 Dec, [facility] [address] [place] [address] 41126- 1587 Dec, S/P placement of cardiac pacemaker Z95.0 and Post-operative pain G89.18 [facility] [address] [place] [address] 77946- 5507 Dec, [facility] [id number] [place] [address] 32313- 0222 Dec, Postsurgical cardiac pacemaker in situ Z95.0 [facility] [id number] [place] [address] 46280- 7099 Nov, [facility] [id number] [place] [address] 65063- 8286 Oct, [facility] [id number] [place] [address] 77148- 6751 Sep, Bradycardia R00.1 ; Seizure R56.9 and Menopausal hot flushes N95.1 [place] [address] [address] August, Hypercholesteremia E78.00 ; Bradycardia R00.1 ; Anxiety F41.9 ; Absence seizure G40.A09 ; Tobacco abuse Z72.0 and Tobacco abuse counseling Z71.6 [place] [address] [address]- 28[address] Apr, [place] [address] 00[address] 1382 Apr, Chest pain in adult R07.9 ; Syncope, unspecified syncope type R55 ; Tobacco use Z72.0 and Hyperlipidemia, unspecified hyperlipidemia type E78.5 [place] [address] 8[address]12- 6866 Feb, Encounter to establish care Z76.89 ; Syncope, unspecified syncope type R55 ; Bradycardia R00.1 ; Anxiety F41.9 and Hypercholesteremia E78.00 [place] [address] 0[address]- [address]111 Jan, [facility] [address] 74841- 6805 Jan, Menopause syndrome N95.1 ; Absence seizure G40.A09 and Syncope, unspecified syncope type R55 [place] [address] 00[address]- 5017 Dec, [facility] [address] [address] Dec, Anxiety F41.9 [facility] [address] 88434- 4964 Jun, [facility] [address] [facility] [id number] [place] [address] Jun, [facility] [address] [facility] [id number] [address] Jun, [facility] [address] [facility] [id number] [address] Jun, [facility] [address] [facility] [id number], [place] [address] Apr, IMMUNIZATIONS No Known Immunizations SOCIAL HISTORY Never Assessed REASON FOR VISIT lesion check Pt had a pacemaker placed a week ago here to have lesion checked BARBARA Servin PLAN OF CARE VITAL SIGNS Height 61 in 2017-12-19 Weight 116.9 lbs 2017-12-19 Temperature 98.2 degrees Fahrenheit 2017-12-19 Heart Rate 72 bpm 2017-12-19 Respiratory Rate 18 2017-12-19 BMI 22.09 kg/m2 2017-12-19 Blood pressure systolic 96 mmHg 2017-12-19 Blood pressure diastolic 62 mmHg 2017-12-19 MEDICATIONS Medication Instructions Dosage Frequency Start Date End Date Duration Status Paxil 20 mg Orally Once a day 1 tablet in the morning 24h Sep, 30 day(s) Active Zonisamide 100 mg Orally Once a day at bedtime 2 capsule Active Tramadol HCl 50 mg Orally every 6 hrs 1 tablet as needed 6h Dec, Active Ibuprofen 800 MG Orally Three times a day 1 tablet with food or milk as needed 8h Jan, 30 days Active RESULTS No Results PROCEDURES No Known procedures INSTRUCTIONS MEDICATIONS ADMINISTERED No Known Medications MEDICAL (GENERAL) HISTORY Type Description Date Medical History uterine cancer( 1985) Medical History menopause Surgical History tubal ligation 2000 Surgical History section 2000 Surgical History Fx R ankle 2003 Surgical History pacemaker 2018 Hospitalization History Surgery(s)/Childbirth(s) only
--- OUTSIDE RECORDS SUMMARY | 2018-03-12 07:25 | XMS REPORT ---
Author Author ORQUIDEA Pagan [facility] Address [address] [place] [address] Care Team Providers Care Telesales Representative Name Role Phone thomasSWETHAORQUIDEA RAYA Unavailable PROBLEMS Type Condition ICD9-CM Code EYY25-KV Code Onset Dates Condition Status SNOMED Code Problem Hypercholesteremia E78.00 Active 82148332 Problem Hyperlipidemia, unspecified hyperlipidemia type E78.5 Active 16430463 Problem Syncope, unspecified syncope type R55 Active 823777481 Problem Absence seizure G40.A09 Active 92908833 Problem Anxiety F41.9 Active 85268301 Problem Bradycardia R00.1 Active 28220861 Problem Menopause syndrome N95.1 Active 172009040 ALLERGIES No Known Allergies ENCOUNTERS Encounter Location Date Diagnosis [place] [id number] [place] [address] 6[address]12- 4132 August, [place] [address] [address]- [address] Apr, [place] [id number] [place] [address] 25569- 5382 Apr, Chest pain in adult R07.9 ; Syncope, unspecified syncope type R55 ; Tobacco use Z72.0 and Hyperlipidemia, unspecified hyperlipidemia type E78.5 [facility] [id number] [place] [address] 78502- 0948 Feb, Encounter to establish care Z76.89 ; Syncope, unspecified syncope type R55 ; Bradycardia R00.1 ; Anxiety F41.9 and Hypercholesteremia E78.00 [facility] [id number] [place] [address] 21689- 4856 Jan, [facility] [address] 0[address]- [address] Jan, Menopause syndrome N95.1 ; Absence seizure G40.A09 and Syncope, unspecified syncope type R55 [facility] [address] [address] Dec, [facility] [id number] [address] Dec, Anxiety F41.9 [facility] [address] [place] [address] 210177- 2565 Jun, [facility] [address] [place] [address] 790213- 4980 Jun, [facility] [address] [place] [address] 88638- 3879 Jun, [facility] [address] [place] [address] 6[address] Jun, [facility] [address] [place] [address] Apr, IMMUNIZATIONS No Known Immunizations SOCIAL HISTORY Never Assessed REASON FOR VISIT Passing out spells- has family hx of HTN, Started hormone pills a few years ago and quit taking them after 1.5 years- , Sometimes balack out gets disoriented- possilby having seizures JStrasserRN PLAN OF CARE Activity Details Follow Up prn Reason: VITAL SIGNS Height 61 in 2016-12-16 Weight 107.2 lbs 2016-12-16 Temperature 97.8 degrees Fahrenheit 2016-12-16 Heart Rate 76 bpm 2016-12-16 Respiratory Rate 18 2016-12-16 BMI 20.25 kg/m2 2016-12-16 Blood pressure systolic 130 mmHg 2016-12-16 Blood pressure diastolic 82 mmHg 2016-12-16 MEDICATIONS Unknown Medications RESULTS No Results PROCEDURES No Known procedures INSTRUCTIONS MEDICATIONS ADMINISTERED No Known Medications MEDICAL (GENERAL) HISTORY Type Description Date Medical History uterine cancer( 1985) Medical History menopause Surgical History tubal ligation 2000 Surgical History section 2000 Surgical History Fx R ankle 2004 Hospitalization History Surgery(s)/Childbirth(s) only
--- OUTSIDE RECORDS SUMMARY | 2018-03-12 07:25 | XMS REPORT | Continuity of Care Document ---
Demographics Preferred Language Unknown Marital Status Unknown Quaker Affiliation Unknown Race Unknown Ethnic Group Unknown Author Author [facility] Address Unknown Phone Unavailable Allergies There is no data. Medications There is no data. Problems Date Dx Coded Attending Type Code Diagnosis Diagnosed By 10/06/2009 627.2 SYMPTOMATIC MENOPAUSAL OR FEMALE CLIMACTERIC STATES 10/06/2009 V49.81 menopause Procedures There is no data. Results There is no data. Encounters ACCT No. Visit Date/Time Discharge Status Pt. Type Provider Facility Loc./Unit Complaint [id number] 10/06/2009 13:54:00 10/06/2009 23:59:59 CLS Outpatient [id number] 04/30/2012 14:24:11 RECURRING
--- OUTSIDE RECORDS SUMMARY | 2018-03-12 07:25 | XMS REPORT ---
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 Name Role Phone KARRI DOUGLAS Unavailable PROBLEMS Type Condition ICD9-CM Code FTU07-LT Code Onset Dates Condition Status SNOMED Code Problem Anxiety F41.9 Active 59055621 Problem Hypercholesteremia E78.00 Active 82674111 Problem Tobacco abuse counseling Z71.6 Active 784331994 Problem Tobacco abuse Z72.0 Active 857194820 Problem Menopause syndrome N95.1 Active 182203405 Problem Absence seizure G40.A09 Active 53503129 Problem Syncope, unspecified syncope type R55 Active 916712676 Problem Bradycardia R00.1 Active 09383253 ALLERGIES No Known Allergies ENCOUNTERS Encounter Location Date Diagnosis [place] [id number] [place] [address] 06935- 2580 August, Hypercholesteremia E78.00 ; Bradycardia R00.1 ; Anxiety F41.9 ; Absence seizure G40.A09 ; Tobacco abuse Z72.0 and Tobacco abuse counseling Z71.6 [place] [id number] [place] [address] 82101- 7410 Apr, [place] [address] [address]- [address] Apr, Chest pain in adult R07.9 ; Syncope, unspecified syncope type R55 ; Tobacco use Z72.0 and Hyperlipidemia, unspecified hyperlipidemia type E78.5 [place] [address] 19[address]- 73[address] Feb, Encounter to establish care Z76.89 ; Syncope, unspecified syncope type R55 ; Bradycardia R00.1 ; Anxiety F41.9 and Hypercholesteremia E78.00 [place] [address] [address] Jan, [facility] [id number] [place] [address] 07962- 6762 Jan, Menopause syndrome N95.1 ; Absence seizure G40.A09 and Syncope, unspecified syncope type R55 [facility] [id number] [place] [address] 42642- 8528 Dec, [facility] [id number] [place] [address] 34122 -5276 Dec, Anxiety F41.9 [facility] [id number] [place] [address] 51923- 9359 Jun, [facility] [id number] [place] [address] 86506- 0094 Jun, [facility] [id number] [place] [address] 39555- 3399 Jun, [facility] [id number] [place] [address] 29037- 2512 Jun, [facility] [id number] [place] [address] 13455- 8261 Apr, IMMUNIZATIONS No Known Immunizations SOCIAL HISTORY Never Assessed REASON FOR VISIT hot flashes, pt. states she has been blacking out but the symptoms are like seizure and has chipped a couple teeth from falling, pt. 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 PLAN OF CARE Activity Details Follow Up 2 Weeks Reason:follow up VITAL SIGNS Height 61 in 2017-01-16 Weight 116.2 lbs 2017-01-16 Temperature 97.9 degrees Fahrenheit 2017-01-16 Heart Rate 77 bpm 2017-01-16 Respiratory Rate 18 2017-01-16 BMI 21.95 kg/m2 2017-01-16 Blood pressure systolic 106 mmHg 2017-01-16 Blood pressure diastolic 68 mmHg 2017-01-16 MEDICATIONS No Known Medications RESULTS Name Result Date Reference Range THYROID ANALYZER 2017-01-16 TSH 0.595 0.450-4.500 A1C 2017-01-16 Hemoglobin A1c 5.5 4.8-5.6 CBC 2017-01-16 WBC 5.7 3.4-10.8 RBC 4.90 3.77-5.28 Hemoglobin 14.0 11.1-15.9 Hematocrit 43.0 34.0-46.6 MCV 88 79-97 MCH 28.6 26.6-33.0 MCHC 32.6 31.5-35.7 RDW 13.4 12.3-15.4 Platelets 215 150-379 Neutrophils 53 Not Estab. Lymphs 39 Not Estab. Monocytes 8 Not Estab. Eos 0 Not Estab. Basos 0 Not Estab. Neutrophils (Absolute) 3.0 1.4-7.0 Lymphs (Absolute) 2.2 0.7-3.1 Monocytes(Absolute) 0.4 0.1-0.9 Eos (Absolute) 0.0 0.0-0.4 Baso (Absolute) 0.0 0.0-0.2 Immature Granulocytes 0 Not Estab. Immature Grans (Abs) 0.0 0.0-0.1 LIPID PANEL 2017-01-16 Cholesterol, Total 272 100-199 Triglycerides 54 0-149 HDL Cholesterol 114 >39 VLDL Cholesterol Wolf 11 5-40 LDL Cholesterol Calc 147 0-99 CMP 2017-01-16 Glucose, Serum 95 65-99 BUN 11 6-24 Creatinine, Serum 0.69 0.57-1.00 eGFR If NonAfricn Am 101 >59 eGFR If Africn Am 117 >59 BUN/Creatinine Ratio 16 9-23 Sodium, Serum 146 134-144 Potassium, Serum 4.6 3.5-5.2 Chloride, Serum 102 96-106 Carbon Dioxide, Total 26 18-29 Calcium, Serum 9.4 8.7-10.2 Protein, Total, Serum 7.1 6.0-8.5 Albumin, Serum 4.6 3.5-5.5 Globulin, Total 2.5 1.5-4.5 A/G Ratio 1.8 1.2-2.2 Bilirubin, Total 0.4 0.0-1.2 Alkaline Phosphatase, S 68 39-117 AST (SGOT) 15 0-40 ALT (SGPT) 11 0-32 LIPID PANEL 2017-01-16 Cholesterol, Total 272 100-199 Triglycerides 54 0-149 HDL Cholesterol 114 >39 VLDL Cholesterol Wolf 11 5-40 LDL Cholesterol Calc 147 0-99 CMP 2017-01-16 Glucose, Serum 95 65-99 BUN 11 6-24 Creatinine, Serum 0.69 0.57-1.00 eGFR If NonAfricn Am 101 >59 eGFR If Africn Am 117 >59 BUN/Creatinine Ratio 16 9-23 Sodium, Serum 146 134-144 Potassium, Serum 4.6 3.5-5.2 Chloride, Serum 102 96-106 Carbon Dioxide, Total 26 18-29 Calcium, Serum 9.4 8.7-10.2 Protein, Total, Serum 7.1 6.0-8.5 Albumin, Serum 4.6 3.5-5.5 Globulin, Total 2.5 1.5-4.5 A/G Ratio 1.8 1.2-2.2 Bilirubin, Total 0.4 0.0-1.2 Alkaline Phosphatase, S 68 39-117 AST (SGOT) 15 0-40 ALT (SGPT) 11 0-32 CBC 2017-01-16 WBC 5.7 3.4-10.8 RBC 4.90 3.77-5.28 Hemoglobin 14.0 11.1-15.9 Hematocrit 43.0 34.0-46.6 MCV 88 79-97 MCH 28.6 26.6-33.0 MCHC 32.6 31.5-35.7 RDW 13.4 12.3-15.4 Platelets 215 150-379 Neutrophils 53 Not Estab. Lymphs 39 Not Estab. Monocytes 8 Not Estab. Eos 0 Not Estab. Basos 0 Not Estab. Neutrophils (Absolute) 3.0 1.4-7.0 Lymphs (Absolute) 2.2 0.7-3.1 Monocytes(Absolute) 0.4 0.1-0.9 Eos (Absolute) 0.0 0.0-0.4 Baso (Absolute) 0.0 0.0-0.2 Immature Granulocytes 0 Not Estab. Immature Grans (Abs) 0.0 0.0-0.1 THYROID ANALYZER 2017-01-16 TSH 0.595 0.450-4.500 A1C 2017-01-16 Hemoglobin A1c 5.5 4.8-5.6 Holter Test 2017-02-03 LIPID PANEL 2017-01-16 Cholesterol, Total 272 100-199 Triglycerides 54 0-149 HDL Cholesterol 114 >39 VLDL Cholesterol Wolf 11 5-40 LDL Cholesterol Calc 147 0-99 CMP 2017-01-16 Glucose, Serum 95 65-99 BUN 11 6-24 Creatinine, Serum 0.69 0.57-1.00 eGFR If NonAfricn Am 101 >59 eGFR If Africn Am 117 >59 BUN/Creatinine Ratio 16 9-23 Sodium, Serum 146 134-144 Potassium, Serum 4.6 3.5-5.2 Chloride, Serum 102 96-106 Carbon Dioxide, Total 26 18-29 Calcium, Serum 9.4 8.7-10.2 Protein, Total, Serum 7.1 6.0-8.5 Albumin, Serum 4.6 3.5-5.5 Globulin, Total 2.5 1.5-4.5 A/G Ratio 1.8 1.2-2.2 Bilirubin, Total 0.4 0.0-1.2 Alkaline Phosphatase, S 68 39-117 AST (SGOT) 15 0-40 ALT (SGPT) 11 0-32 CBC 2017-01-16 WBC 5.7 3.4-10.8 RBC 4.90 3.77-5.28 Hemoglobin 14.0 11.1-15.9 Hematocrit 43.0 34.0-46.6 MCV 88 79-97 MCH 28.6 26.6-33.0 MCHC 32.6 31.5-35.7 RDW 13.4 12.3-15.4 Platelets 215 150-379 Neutrophils 53 Not Estab. Lymphs 39 Not Estab. Monocytes 8 Not Estab. Eos 0 Not Estab. Basos 0 Not Estab. Neutrophils (Absolute) 3.0 1.4-7.0 Lymphs (Absolute) 2.2 0.7-3.1 Monocytes(Absolute) 0.4 0.1-0.9 Eos (Absolute) 0.0 0.0-0.4 Baso (Absolute) 0.0 0.0-0.2 Immature Granulocytes 0 Not Estab. Immature Grans (Abs) 0.0 0.0-0.1 THYROID ANALYZER 2017-01-16 TSH 0.595 0.450-4.500 A1C 2017-01-16 Hemoglobin A1c 5.5 4.8-5.6 Holter Test 2017-02-03 Echo 2D 2017-02-03 PROCEDURES Procedure Date Ordered Result Body Site EKG, TRACING (IN-HOUSE) 2017-01-16 N/A Hemoglobin Test Send Out 0 dollar Jan 16, 2017 ELECTROCARDIOGRAM, TRACING Jan 16, 2017 VENIPUNCT, ROUTINE* Jan 16, 2017 COMPREHEN METABOLIC PANEL Jan 16, 2017 COMPLETE CBC W/AUTO DIFF WBC Jan 16, 2017 LIPID PANEL Jan 16, 2017 ASSAY THYROID STIM HORMONE Jan 16, 2017 INSTRUCTIONS MEDICATIONS ADMINISTERED No Known Medications MEDICAL (GENERAL) HISTORY Type Description Date Medical History uterine cancer( 1985) Medical History menopause Surgical History tubal ligation 2000 Surgical History section 2000 Surgical History Fx R ankle 2003 Hospitalization History Surgery(s)/Childbirth(s) only
--- OUTSIDE RECORDS SUMMARY | 2018-03-12 07:25 | XMS REPORT ---
Author Author PARTH CALERO Organization [facility] Address [address] [place] [address] Care Team Providers Care Brass Cleaner Name Role Phone LUIS CALEROELIECER Unavailable PROBLEMS Type Condition ICD9-CM Code PEV06-YJ Code Onset Dates Condition Status SNOMED Code Problem Anxiety F41.9 Active 68987125 Problem Hypercholesteremia E78.00 Active 53369510 Problem Tobacco abuse counseling Z71.6 Active 818868645 Problem Tobacco abuse Z72.0 Active 252593063 Problem Menopause syndrome N95.1 Active 953910883 Problem Absence seizure G40.A09 Active 03664851 Problem Syncope, unspecified syncope type R55 Active 385282787 Problem Bradycardia R00.1 Active 50045127 ALLERGIES No Information ENCOUNTERS Encounter Location Date Diagnosis [place] [id number] [place] [address]- [address] Sep, [place] [address] [address] August, Hypercholesteremia E78.00 ; Bradycardia R00.1 ; Anxiety F41.9 ; Absence seizure G40.A09 ; Tobacco abuse Z72.0 and Tobacco abuse counseling Z71.6 [place] [id number] [place] [address] 85209- 9135 Apr, [place] [address] [place] [address] 49158- 4083 Apr, Chest pain in adult R07.9 ; Syncope, unspecified syncope type R55 ; Tobacco use Z72.0 and Hyperlipidemia, unspecified hyperlipidemia type E78.5 [place] [id number] [place] [address] 50928- 8676 Feb, Encounter to establish care Z76.89 ; Syncope, unspecified syncope type R55 ; Bradycardia R00.1 ; Anxiety F41.9 and Hypercholesteremia E78.00 [facility] [id number] [place] [address] 97779- 1419 Jan, [facility] [id number] [place] [address] 40487- 5739 Jan, Menopause syndrome N95.1 ; Absence seizure G40.A09 and Syncope, unspecified syncope type R55 [facility] [id number] [place] [address] 82316- 8758 Dec, [facility] [address] 57[address] Dec, Anxiety F41.9 [facility] [id number] [place] [address] 43288- 4120 Jun, [facility] [address] [address]- [address]11 Jun, [facility] [id number] [place] [address] 89740- 3087 Jun, [facility] [id number] [place] [address] 67234- 1680 Jun, [facility] [id number] [place] [address] 34582- 6291 Apr, IMMUNIZATIONS No Known Immunizations SOCIAL HISTORY Never Assessed REASON FOR VISIT PA for Exercise Nuclear Stress PLAN OF CARE VITAL SIGNS MEDICATIONS Unknown Medications RESULTS No Results PROCEDURES No Known procedures INSTRUCTIONS MEDICATIONS ADMINISTERED No Known Medications MEDICAL (GENERAL) HISTORY Type Description Date Medical History uterine cancer( 1985) Medical History menopause Surgical History tubal ligation 2000 Surgical History section 2000 Surgical History Fx R ankle 2004 Hospitalization History Surgery(s)/Childbirth(s) only
[2018-03-12 07:30] LABS: BASOPHILS % (AUTO) 0 % (0-10); EOSINOPHILS % (AUTO) 0 % (0-10); HEMATOCRIT 40 % (35-52); HEMOGLOBIN 13.4 G/DL (11.5-16.0); LYMPHOCYTES # (AUTO) 5.1 X 10^3 (1.0-4.0); LYMPHOCYTES % (AUTO) 64 % (12-44); MEAN CORPUSCULAR HEMOGLOBIN 29 PG (25-34); MEAN CORPUSCULAR HGB CONC 34 G/DL (32-36); MEAN CORPUSCULAR VOLUME 87 FL (80-99); MEAN PLATELET VOLUME 10.3 FL (7.4-10.4); MONOCYTES # (AUTO) 0.6 X 10^3 (0.0-1.0); MONOCYTES % (AUTO) 7 % (0-12); NEUTROPHILS # (AUTO) 2.4 X 10^3 (1.8-7.8); NEUTROPHILS % (AUTO) 29 % (42-75); PLATELET COUNT 239 10^3/uL (130-400); RED BLOOD COUNT 4.58 10^6/uL (4.35-5.85); RED CELL DISTRIBUTION WIDTH 13.8 % (10.0-14.5); WHITE BLOOD COUNT 8.1 10^3/uL (4.3-11.0)
[2018-03-12] MEDS ORDERED: ZONI100C3 PO (07:44)
[2018-03-12 07:49] LABS: ALANINE AMINOTRANSFERASE 14 U/L (0-55); ALBUMIN 3.9 GM/DL (3.2-4.5); ALKALINE PHOSPHATASE 79 U/L (40-136); BILIRUBIN,TOTAL 0.4 MG/DL (0.1-1.0); BUN/CREATININE RATIO 11; CALCIUM 9.2 MG/DL (8.5-10.1); CARBON DIOXIDE 19 MMOL/L (21-32); CHLORIDE 110 MMOL/L (98-107); CREATININE SERUM 0.72 MG/DL (0.60-1.30); GFR ESTIMATED > 60; GLUCOSE 119 MG/DL (70-105); MAGNESIUM 1.9 MG/DL (1.8-2.4); POTASSIUM 3.6 MMOL/L (3.6-5.0); SALICYLATE < 5.0 MG/DL (5.0-20.0); SODIUM 141 MMOL/L (135-145); TOTAL PROTEIN 6.8 GM/DL (6.4-8.2)
[2018-03-12 07:53] LABS: ACETAMINOPHEN < 10 UG/ML (10-30)
--- NOTE | 2018-03-12 08:03 | ED Neurological Problem ---
General Chief Complaint: Neurological Problems Stated Complaint: SEIZURES Nursing Triage Note: PT TO [facility] WITH CC OF A SEIZURE THAT ACCORDING TO FAMILY LASTED ABOUT 5 MIN. PT HAS A HX OF SEIZURES. PT LETHARGIC ON ARRIVAL TO ER NOT ANSWERING QUESTIONS. Nursing Sepsis Screen: No Definite Risk Source: patient Exam Limitations: no limitations History of Present Illness Date Seen by Provider: Mar 12, 2018 Time Seen by Provider: 07:22 Initial Comments Here with report of being found having a seizure by family members per EMS. Seizure lasted about 5 minutes. Postictal afterwards and confused and not cooperative. EMS. They were unable to start IV or get vital signs due to this state. She is a little better on arrival here. Does have known seizure disorder and is on medicines for that. No obvious injury the patient is not answering questions well. Timing/Duration: 1/2 hour, episodic Severity: moderate Associated Symptoms: confusion, seizures Allergies and Home Medications Allergies Coded Allergies: No Known Drug Allergies (Unverified , 05/15/17) Patient Home Medication List Home Medication List Reviewed: Yes Review of Systems Review of Systems Constitutional: see HPI; No chills, No fever Psychiatric/Neurological: See HPI, Tonic Clonic Seizures, Weakness Unable to complete review of systems due to underlying medical condition and postictal state. Past Glhuehk-Hdramj-Vmrgnk Hx Past Med/Social Hx: Reviewed Nursing Past Med/Soc Hx Patient Social History Alcohol Use: Denies Use Recreational Drug Use: No Smoking Status: Unknown if Ever Smoked Recent Foreign Travel: No Contact w/Someone Who Travel: No Recent Infectious Disease Expo: No Past Medical History Surgeries: Yes Section, Orthopedic, Tubal Ligation Neurological: Yes Seizure Disorder Family Medical History Reviewed Nursing Family Hx Cancer Per records as patient unable to provide history Physical Exam Vital Signs Vital Signs - First Documented 03/12/18 07:28 Temp 97.6 Pulse 74 Resp 18 B/P (MAP) 121/91 (101) Pulse Ox 100 O2 Delivery Room Air Capillary Refill : Less Than 3 Seconds Height, Weight, BMI Height: 5'1.00" Weight: 117lbs. 0.0oz. 53.353199sq; 22.1 BMI Method:Estimated General Appearance: WD/WN, no apparent distress HEENT: PERRL/EOMI, pharynx normal Neck: full range of motion, supple Respiratory: lungs clear, normal breath sounds Cardiovascular: regular rate, rhythm, no murmur Gastrointestinal: non tender, soft Back: normal inspection, no CVA tenderness, no vertebral tenderness Extremities: non-tender, normal inspection Neurologic/Psychiatric: alert, oriented x 3, other (confused but does follow simple verbal commands.) Crainal Nerves: other (patient does mumble some answers to simple questions) Motor/Sensory: other (moves all 4 extremities) Skin: normal color, warm/dry Progress/Results/Core Measures Results/Orders Lab Results Laboratory Tests Test 03/12/18 07:22 03/12/18 07:24 03/12/18 08:25 Range/Units Glucometer 100 70-110 MG/DL White Blood Count 8.1 4.3-11.0 10^3/uL Red Blood Count 4.58 4.35-5.85 10^6/uL Hemoglobin 13.4 11.5-16.0 G/DL Hematocrit 40 35-52 % Mean Corpuscular Volume 87 80-99 FL Mean Corpuscular Hemoglobin 29 25-34 PG Mean Corpuscular Hemoglobin Concent 34 32-36 G/DL Red Cell Distribution Width 13.8 10.0-14.5 % Platelet Count 239 130-400 10^3/uL Mean Platelet Volume 10.3 7.4-10.4 FL Neutrophils (%) (Auto) 29 L 42-75 % Lymphocytes (%) (Auto) 64 H 12-44 % Monocytes (%) (Auto) 7 0-12 % Eosinophils (%) (Auto) 0 0-10 % Basophils (%) (Auto) 0 0-10 % Neutrophils # (Auto) 2.4 1.8-7.8 X 10^3 Lymphocytes # (Auto) 5.1 H 1.0-4.0 X 10^3 Monocytes # (Auto) 0.6 0.0-1.0 X 10^3 Eosinophils # (Auto) 0.0 0.0-0.3 10^3/uL Basophils # (Auto) 0.0 0.0-0.1 10^3/uL Sodium Level 141 135-145 MMOL/L Potassium Level 3.6 3.6-5.0 MMOL/L Chloride Level 110 H 98-107 MMOL/L Carbon Dioxide Level 19 L 21-32 MMOL/L Anion Gap 12 5-14 MMOL/L Blood Urea Nitrogen 8 7-18 MG/DL Creatinine 0.72 0.60-1.30 MG/DL Estimat Glomerular Filtration Rate > 60 BUN/Creatinine Ratio 11 Glucose Level 119 H 70-105 MG/DL Calcium Level 9.2 8.5-10.1 MG/DL Corrected Calcium 9.3 8.5-10.1 MG/DL Magnesium Level 1.9 1.8-2.4 MG/DL Total Bilirubin 0.4 0.1-1.0 MG/DL Aspartate Amino Transf (AST/SGOT) 16 5-34 U/L Alanine Aminotransferase (ALT/SGPT) 14 0-55 U/L Alkaline Phosphatase 79 40-136 U/L Total Protein 6.8 6.4-8.2 GM/DL Albumin 3.9 3.2-4.5 GM/DL Thyroid Stimulating Hormone (TSH) 2.31 0.35-4.94 UIU/ML Salicylates Level < 5.0 L 5.0-20.0 MG/DL Acetaminophen Level < 10 L 10-30 UG/ML Serum Alcohol < 10 <10 MG/DL Urine Color YELLOW Urine Clarity CLEAR Urine pH 8 5-9 Urine Specific [place] 1.010 L 1.016-1.022 Urine Protein NEGATIVE NEGATIVE Urine Glucose (UA) NEGATIVE NEGATIVE Urine Ketones NEGATIVE NEGATIVE Urine Nitrite NEGATIVE NEGATIVE Urine Bilirubin NEGATIVE NEGATIVE Urine Urobilinogen NORMAL NORMAL MG/DL Urine Leukocyte Esterase 3+ H NEGATIVE Urine RBC (Auto) NEGATIVE NEGATIVE Urine RBC NONE /HPF Urine WBC 0-2 /HPF Urine Squamous Epithelial Cells 2-5 /HPF Urine Crystals NONE /LPF Urine Bacteria NEGATIVE /HPF Urine Casts NONE /LPF Urine Mucus NEGATIVE /LPF Urine Trichomonas FEW H /HPF Urine Culture Indicated NO Urine Opiates Screen NEGATIVE NEGATIVE Urine Oxycodone Screen NEGATIVE NEGATIVE Urine Methadone Screen NEGATIVE NEGATIVE Urine Propoxyphene Screen NEGATIVE NEGATIVE Urine Barbiturates Screen NEGATIVE NEGATIVE Ur Tricyclic Antidepressants Screen NEGATIVE NEGATIVE Urine Phencyclidine Screen NEGATIVE NEGATIVE Urine Amphetamines Screen NEGATIVE NEGATIVE Urine Methamphetamines Screen NEGATIVE NEGATIVE Urine Benzodiazepines Screen NEGATIVE NEGATIVE Urine Cocaine Screen NEGATIVE NEGATIVE Urine Cannabinoids Screen POSITIVE H NEGATIVE My Orders Orders - VIJAY FUNES MD Cbc With Automated Diff (03/12/18 07:24) Comprehensive Metabolic Panel (03/12/18 07:24) Magnesium (03/12/18 07:24) Thyroid Stimulating Hormone (03/12/18 07:24) Accucheck Stat ONCE (03/12/18 07:24) Saline Lock/Iv-Start (03/12/18 07:24) Ns Iv 1000 Ml (Sodium Chloride 0.9%) (03/12/18 07:24) Ekg Tracing (03/12/18 07:29) Acetaminophen (03/12/18 07:29) Alcohol (03/12/18 07:29) Drug Screen Stat (Urine) (03/12/18 07:29) Salicylate (03/12/18 07:29) Ua Culture If Indicated (03/12/18 07:29) Ct Head Wo (03/12/18 08:19) Shoulder, Left, 3 Views (03/12/18 09:18) Ketorolac Injection (Toradol Injection) (03/12/18 09:35) Ketorolac Injection (Toradol Injection) (03/12/18 09:35) Medications Given in ED Current Medications Medications Dose Ordered Sig/Naveen Route Start Time Stop Time Status Last Admin Dose Admin Sodium Chloride 1,000 ml @ 0 mls/hr Q0M ONCE IV 03/12/18 07:24 03/12/18 07:26 DC 03/12/18 07:39 1,000 MLS/HR Vital Signs/I&O 03/12/18 03/12/18 07:28 09:38 Temp 97.6 97.6 Pulse 74 Resp 18 B/P (MAP) 121/91 (101) Pulse Ox 100 O2 Delivery Room Air Blood Pressure Mean: 101 FSBG Bedside Testing Finger Stick Blood Glucose: 100 Blood Glucose Action Taken: INFORMED Progress Progress Note : Progress Note Seen and evaluated. IV, labs, EKG, normal saline 1 L bolus and fingerstick blood sugar ordered. Monitor patient. We will check CT the head. 1000: X-ray left shoulder was ordered. Toradol 30 mg IV for headache. Monitor patient. 1015: No acute finding on x-rays and headache is improved after Toradol earlier. She apparently missed her dose of medicine last night because she fell asleep before taking it. She'll start taking her medicines in the morning now so she can keep track of that better. Discharged home with return precautions. Patient and family verbalize understanding instructions and agreement with plan. Initial ECG Impression Date: Mar 12, 2018 Initial ECG Impression Time: 07:27 Initial ECG Rate: 72 Initial ECG Rhythm: Normal Sinus Comment Sinus rhythm with left atrial abnormality. No evidence of ST elevation WI. No previous available for comparison. Normal axis. Interpreted by me. Diagnostic Imaging Diagonstic Imaging: CT Plain Films/CT/US/NM/MRI: head Comments [facility] [place], [place] NAME: [facility] REC#: [id number] PT STATUS: [facility] ER : 1965 PHYSICIAN: VIJAY FUNES MD ADMIT DATE: 03/12/18/ER Draft Date of Exam:03/12/18 CT HEAD WO Indication: Seizures Noncontrast brain CT is performed. There is no prior study for comparison. There were no extra-axial fluid collections. No intracranial hemorrhage. No intracranial mass or mass effect. No midline shift. The ventricles are normal in size and position. There are no discrete parenchymal abnormalities in the brain. Calvarial windows appear unremarkable. IMPRESSION: Negative noncontrast brain CT. Dictated on workstation # [id number] Dict: 03/12/18 0852 Trans: 03/12/18 0855 [facility] [id number] Interpreted by: NIRMAL DAY MD Electronically signed by: Diagonstic Imaging: Xray Plain Films/CT/US/NM/MRI: other Comments [facility]. [place], [place] NAME: [facility] REC#: [id number] PT STATUS: [facility] ER : 1965 PHYSICIAN: VIJAY FUNES MD ADMIT DATE: 03/12/18/ER Draft Date of Exam:03/12/18 SHOULDER, LEFT, 3 VIEWS Clinical indication: Patient fell out of bed this morning with a seizure. Patient complains of left shoulder pain. Patient landed on shoulder. Pacemaker in place in November. Exam: X-ray of the left shoulder, 3 views including scapular Y view. Comparison: X-ray of the left shoulder dated 01/05/2009. Findings: There is no acute fracture or dislocation. There is no significant bone or joint abnormality. Pacemaker seen overlying left chest. Left acromioclavicular joints unremarkable. Impression: Unremarkable x-ray of left shoulder. Dictated on workstation # [id number] Dict: 03/12/18 1000 Trans: 03/12/18 1007 ANTHONY [id number] Interpreted by: SOLIS LOWERY MD Electronically signed by: Departure Impression Primary Impression: Seizure Disposition: 01 HOME, SELF-CARE Condition: Improved Departure-Patient Inst. Decision time for Depature: 10:19 Referrals: HUGH ARAGON DO (PCP) Primary Care Physician KARRI DOUGLAS APRN (Family) Primary Care Physician Patient Instructions: Seizures, Adult (DC) Add. Discharge Instructions: All discharge instructions reviewed with patient and/or family. Voiced understanding. Take medications as directed. Follow-up your Dr. in a few days for recheck. you should take your medicines this morning sitting at home. Rest today and return to work tomorrow. Return for worse pain, fever, vomiting, weakness, breathing problems, seizure activity or other concerns as needed. Work/School Note: Family Work Note, Patient Received Medical Care In the Emergency Department On: Mar 12, 2018 Patient Will Be Able to Return to Work/School On: Mar 13, 2018 Patient Restrictions: Family member to miss work to be with sick family member. Work Release Form Date Seen in the Emergency Department: Mar 12, 2018 Return to Work: Mar 13, 2018 Restrictions: No Restrictions VIJAY FUNES MD Mar 12, 2018 08:03
[2018-03-12 08:35] LABS: BILIRUBIN,URINE NEGATIVE (NEGATIVE); CLARITY,URINE CLEAR; COLOR,URINE YELLOW; GLUCOSE, URINE (UA) NEGATIVE (NEGATIVE); KETONES,URINE NEGATIVE (NEGATIVE); LEUKOCYTE ESTERASE ,URINE 3+ (NEGATIVE); NITRITE,URINE NEGATIVE (NEGATIVE); PH,URINE 8 (5-9); PROTEIN,URINE NEGATIVE (NEGATIVE); UROBILINOGEN,URINE NORMAL (NORMAL)
[2018-03-12 08:52] LABS: BACTERIA,URINE NEGATIVE /HPF; TRICHOMONAS,URINE FEW /HPF; WBC,URINE 0-2 /HPF
--- NOTE | 2018-03-12 08:56 | Diagnostic Imaging Report ---
Indication: Seizures Noncontrast brain CT is performed. There is no prior study for comparison. There were no extra-axial fluid collections. No intracranial hemorrhage. No intracranial mass or mass effect. No midline shift. The ventricles are normal in size and position. There are no discrete parenchymal abnormalities in the brain. Calvarial windows appear unremarkable. IMPRESSION: Negative noncontrast brain CT. Dictated by: Dictated on workstation # [id number]
[2018-03-12 09:00] LABS: AMPHETAMINE SCREEN, URINE NEGATIVE (NEGATIVE); BARBITURATE SCREEN URINE NEGATIVE (NEGATIVE); BENZODIAZEPINES SCREEN URINE NEGATIVE (NEGATIVE); CANNABINOID SCREEN, URINE POSITIVE (NEGATIVE); COCAINE SCREEN URINE NEGATIVE (NEGATIVE); METHADONE STAT NEGATIVE (NEGATIVE); METHAMPHETAMINE SCREEN URINE S NEGATIVE (NEGATIVE); OPIATE SCREEN URINE NEGATIVE (NEGATIVE); OXYCODONE STAT NEGATIVE (NEGATIVE); PROPOXYPHENE STAT NEGATIVE (NEGATIVE); TRICYCLIC ANTIDEPRESSANTS SCRE NEGATIVE (NEGATIVE)
[2018-03-12] MEDS ORDERED: KETOROLAC 30 MG/ML VIAL ONE (09:35)
[2018-03-12] MEDS ORDERED: KETOROLAC 30 MG/ML VIAL IVP STA (09:35)
--- NOTE | 2018-03-12 10:08 | Diagnostic Imaging Report ---
Clinical indication: Patient fell out of bed this morning with a seizure. Patient complains of left shoulder pain. Patient landed on shoulder. Pacemaker in place in November. Exam: X-ray of the left shoulder, 3 views including scapular Y view. Comparison: X-ray of the left shoulder dated 01/05/2009. Findings: There is no acute fracture or dislocation. There is no significant bone or joint abnormality. Pacemaker seen overlying left chest. Left acromioclavicular joints unremarkable. Impression: Unremarkable x-ray of left shoulder. Dictated by: Dictated on workstation # [id number]
[2018-03-12 10:32] VITALS: BP 120/87
== END 2018-03-12 10:32 | disposition home or self-care (01) ==
LOC: EDUNIT# 07:17 → ER 07:18
DX: G40.909 Epilepsy, unspecified, not intractable, without status epilepticus (principal); M25.512 Pain in left shoulder; Z98.890 Other specified postprocedural states; Z98.51 Tubal ligation status; W06.XXXA Fall from bed, initial encounter
CPT/HCPCS: 36415; 70450; 73030; 80053; 80306; 80320; 80329; 81000; 82962; 83735; 84443; 85025; 93005

== ENCOUNTER → 2019-08-26 | Outpatient (CLI) | payer MEDICAID ==
[~2019-08-26] MED LIST changes: -NS IV 1000 ML 1,000 ML ONE; +ZONI100C29 PO
[2019-08-26 09:13] LABS: BASOPHILS % (AUTO) 0 % (0-10); EOSINOPHILS % (AUTO) 1 % (0-10); HEMATOCRIT 41 % (35-52); HEMOGLOBIN 13.5 G/DL (11.5-16.0); LYMPHOCYTES # (AUTO) 2.2 X 10^3 (1.0-4.0); LYMPHOCYTES % (AUTO) 46 % (12-44); MEAN CORPUSCULAR HEMOGLOBIN 29 PG (25-34); MEAN CORPUSCULAR HGB CONC 33 G/DL (32-36); MEAN CORPUSCULAR VOLUME 86 FL (80-99); MEAN PLATELET VOLUME 10.3 FL (7.4-10.4); MONOCYTES # (AUTO) 0.3 X 10^3 (0.0-1.0); MONOCYTES % (AUTO) 7 % (0-12); NEUTROPHILS # (AUTO) 2.2 X 10^3 (1.8-7.8); NEUTROPHILS % (AUTO) 46 % (42-75); PLATELET COUNT 216 10^3/uL (130-400); RED CELL DISTRIBUTION WIDTH 13.7 % (10.0-14.5); WHITE BLOOD COUNT 4.7 10^3/uL (4.3-11.0)
[2019-08-26 09:32] LABS: ALANINE AMINOTRANSFERASE 13 U/L (0-55); ALBUMIN 4.3 GM/DL (3.2-4.5); ALKALINE PHOSPHATASE 69 U/L (40-136); BILIRUBIN,TOTAL 0.4 MG/DL (0.1-1.0); BUN/CREATININE RATIO 13; CALCIUM 9.1 MG/DL (8.5-10.1); CARBON DIOXIDE 23 MMOL/L (21-32); CHLORIDE 108 MMOL/L (98-107); CHOLESTEROL 184 MG/DL (< 200); CREATININE SERUM 0.71 MG/DL (0.60-1.30); GFR ESTIMATED > 60; GLUCOSE 88 MG/DL (70-105); HDL CHOLESTEROL 76 MG/DL (40-60); POTASSIUM 3.4 MMOL/L (3.6-5.0); SODIUM 141 MMOL/L (135-145); TOTAL PROTEIN 7.1 GM/DL (6.4-8.2); TRIGLYCERIDES 40 MG/DL (<150); VLDL CHOLESTEROL 8 MG/DL (5-40)
[2019-08-26 09:53] LABS: FREE T4 (FREE THYROXINE) 0.85 NG/DL (0.70-1.48)
[2019-08-26 10:12] LABS: ERYTHROCYTE SEDIMENTATION RATE 9 MM/HR (0-30)
== END ==
LOC: LAB 08:56
PROVIDERS: ATTEND Internal Medicine Cardiovascular Disease
DX: E78.5 Hyperlipidemia, unspecified (principal); R63.0 Anorexia; I10 Essential (primary) hypertension
CPT/HCPCS: 36415; 80053; 80061; 84439; 84443; 85025; 85652

== ENCOUNTER → 2019-08-29 | Outpatient (CLI) | payer MEDICAID ==
[2019-08-29 12:28] LABS: BASOPHILS % (AUTO) 0 % (0-10); EOSINOPHILS % (AUTO) 1 % (0-10); HEMATOCRIT 38 % (35-52); HEMOGLOBIN 12.7 G/DL (11.5-16.0); LYMPHOCYTES # (AUTO) 2.1 X 10^3 (1.0-4.0); LYMPHOCYTES % (AUTO) 42 % (12-44); MEAN CORPUSCULAR HEMOGLOBIN 28 PG (25-34); MEAN CORPUSCULAR HGB CONC 33 G/DL (32-36); MEAN CORPUSCULAR VOLUME 85 FL (80-99); MEAN PLATELET VOLUME 10.3 FL (7.4-10.4); MONOCYTES # (AUTO) 0.3 X 10^3 (0.0-1.0); MONOCYTES % (AUTO) 7 % (0-12); NEUTROPHILS # (AUTO) 2.5 X 10^3 (1.8-7.8); NEUTROPHILS % (AUTO) 50 % (42-75); PLATELET COUNT 223 10^3/uL (130-400); RED CELL DISTRIBUTION WIDTH 13.7 % (10.0-14.5)
[2019-08-29 12:47] LABS: BILIRUBIN,URINE NEGATIVE (NEGATIVE); CLARITY,URINE CLOUDY; COLOR,URINE YELLOW; GLUCOSE, URINE (UA) NEGATIVE (NEGATIVE); KETONES,URINE NEGATIVE (NEGATIVE); LEUKOCYTE ESTERASE ,URINE NEGATIVE (NEGATIVE); NITRITE,URINE NEGATIVE (NEGATIVE); PH,URINE 7.5 (5-9); PROTEIN,URINE NEGATIVE (NEGATIVE)
[2019-08-29 12:53] LABS: AMYLASE 81 U/L (25-125); BUN/CREATININE RATIO 15; CALCIUM 8.7 MG/DL (8.5-10.1); CARBON DIOXIDE 28 MMOL/L (21-32); CHLORIDE 111 MMOL/L (98-107); CREATININE SERUM 0.82 MG/DL (0.60-1.30); GFR ESTIMATED > 60; GLUCOSE 83 MG/DL (70-105); POTASSIUM 3.6 MMOL/L (3.6-5.0); SODIUM 143 MMOL/L (135-145)
[2019-08-29 12:59] LABS: BACTERIA,URINE TRACE /HPF; WBC,URINE 0-2 /HPF
[2019-08-29 13:00] LABS: SQUAMOUS EPITHELIAL CELL,UR 0-2 /HPF
[2019-08-29 13:05] LABS: AMORPHOUS SEDIMENT,UR LARGE AMOR PHOSPHATE /LPF
== END ==
LOC: LAB 12:10
PROVIDERS: ATTEND Family Medicine
DX: R10.12 Left upper quadrant pain (principal)
CPT/HCPCS: 36415; 80048; 81000; 82150; 85025

== ENCOUNTER → 2019-10-01 | Outpatient (CLI) | payer MEDICAID ==
--- NOTE | 2019-10-01 09:40 | Diagnostic Imaging Report ---
PROCEDURE: US Gallbladder. TECHNIQUE: Multiple Real-time grayscale images were obtained over the right upper quadrant in various projections. INDICATION: Right upper quadrant discomfort. COMPARISON: No relevant comparison. FINDINGS: The liver contains a few small simple benign cysts. The largest in the left hepatic lobe measures 2.1 cm in long axis. No vascularized solid or suspect liver lesion. The liver parenchyma is otherwise homogenous and normal in its echotexture. The gallbladder is normal with no sludge, stone, polyp, wall thickening, or dilatation. There is no abnormal distention of the intra or extrahepatic bile ducts. The partially visualized pancreas is unremarkable where seen. The unobstructed right kidney appears normal. There is no ascites and no fluid collection. IMPRESSION: There are a few small simple benign hepatic cysts. No biliary abnormality, ascites, or acute appearing pathology. Dictated by: Dictated on workstation # [id number]
== END ==
LOC: RAD 08:25
PROVIDERS: ATTEND Family Medicine
DX: K76.89 Other specified diseases of liver (principal); R10.11 Right upper quadrant pain
CPT/HCPCS: 76705

== ENCOUNTER → 2019-10-10 | Outpatient (CLI) | payer MEDICAID ==
[~2019-10-10] MED LIST changes: +HOLD METFORMIN - RECEIVED CONTRAST 20 ML VIAL IV SCH; +IOHEXOL 350 MG/ML 100 ML (OMNIPAQUE 350) VIAL IV ONE
[2019-10-10 09:38] LABS: BUN/CREATININE RATIO 20; CREATININE SERUM 0.71 MG/DL (0.60-1.30); GFR ESTIMATED > 60
--- NOTE | 2019-10-10 10:45 | Diagnostic Imaging Report ---
PROCEDURE: CT abdomen and pelvis with contrast. TECHNIQUE: Multiple contiguous axial images were obtained through the abdomen and pelvis after administration of intravenous contrast. Auto Exposure Controls were utilized during the CT exam to meet ALARA standards for radiation dose reduction. INDICATION: Midabdominal discomfort and history of cervical carcinoma. COMPARISON: There are no prior studies available for comparison. FINDINGS: There are numerous rounded areas of low density scattered throughout the liver. These range in size from 18 mm in the inferior-most portion of the right lobe of the liver to less than a few millimeters in size. These are most likely cysts. The liver itself does not appear to be enlarged and there is no focal solid mass involving the liver. The biliary tree is not abnormally dilated. There is no evidence for cholelithiasis or acute cholecystitis. The spleen, pancreas, adrenals, kidneys, aorta, and inferior vena cava show no sign of an acute abnormality. The stomach is partially filled with fluid and gas and difficult to assess. There is some fluid in the small bowel and there are few segments of small bowel which do show thickening of the wall of the small bowel. This apparent thickening may be secondary to incomplete distention. The possibility that there is an element of enteritis present should also be considered. There is a fair amount of fecal material throughout the ascending and transverse colon. There may be a few diverticula in the sigmoid colon but there is no sign of acute diverticulitis. The appendix was not well visualized but there are no indirect signs of acute appendicitis. The urinary bladder and the uterus are grossly unremarkable. There are tubal ligation clips on each side of the pelvis. The lung bases are clear. The bone windows show no evidence for a fracture or for a destructive lesion. IMPRESSION: 1. There is some fluid in the small bowel and there does seem to be some thickening of the wall of the small bowel. Whether this is secondary to incomplete distention or enteritis is not certain. Clinical follow-up is recommended. 2. There is no acute abnormality of the abdomen or pelvis noted, otherwise. 3. There are multiple small cysts throughout the liver. Dictated by: Dictated on workstation # [id number]
== END ==
LOC: RAD 09:02
PROVIDERS: ATTEND Family Medicine
DX: K76.89 Other specified diseases of liver (principal); R10.9 Unspecified abdominal pain; Z85.41 Personal history of malignant neoplasm of cervix uteri
CPT/HCPCS: 36415; 74177; 82565; 84520

== ENCOUNTER → 2020-01-13 | Outpatient (CLI) | payer MEDICAID ==
[~2020-01-13] MED LIST changes: -HOLD METFORMIN - RECEIVED CONTRAST 20 ML VIAL IV SCH; -IOHEXOL 350 MG/ML 100 ML (OMNIPAQUE 350) VIAL IV ONE
--- NOTE | 2020-01-13 19:41 | Diagnostic Imaging Report ---
EXAM: Digital mammogram, bilateral screening. COMPARISON: This is the patient's baseline study. There are no current complaints. FINDINGS: The fibroglandular tissue in both breasts is heterogeneously dense. This does limit the sensitivity of this exam. There is no primary or secondary sign of malignancy noted. There is a pacemaker battery pack overlying the pectoralis muscle on the left and this portion of the pectoralis muscle is obscured. IMPRESSION: 1. There is no evidence for malignancy. 2. The patient should have her annual bilateral screening mammogram on schedule in December 2020. ACR category 1. ACR BI-RADS Category 1: Negative. Result letter will be mailed to the patient. Note: At least 10% of breast cancer is not imaged by mammography. Dictated by: Dictated on workstation # [id number]
== END ==
LOC: RAD 10:22
PROVIDERS: ATTEND Family Medicine
DX: Z12.31 Encounter for screening mammogram for malignant neoplasm of breast (principal)
CPT/HCPCS: 77063; 77067

== ENCOUNTER 2020-08-28 22:34 | Emergency (ER) | payer MEDICAID ==
[~2020-08-28] VITALS: Ht 155 cm; Wt 53.1 kg
[2020-08-28 23:07] LABS: BASOPHILS % (AUTO) 0 % (0-10); EOSINOPHILS # (AUTO) 0.1 10^3/uL (0.0-0.3); EOSINOPHILS % (AUTO) 1 % (0-10); HEMATOCRIT 39 % (35-52); HEMOGLOBIN 13.1 g/dL (11.5-16.0); LYMPHOCYTES # (AUTO) 3.9 10^3/uL (1.0-4.0); LYMPHOCYTES % (AUTO) 49 % (12-44); MEAN CORPUSCULAR HEMOGLOBIN 30 pg (25-34); MEAN CORPUSCULAR HGB CONC 34 g/dL (32-36); MEAN CORPUSCULAR VOLUME 89 fL (80-99); MEAN PLATELET VOLUME 10.6 fL (9.0-12.2); MONOCYTES # (AUTO) 0.6 10^3/uL (0.0-1.0); MONOCYTES % (AUTO) 7 % (0-12); NEUTROPHILS # (AUTO) 3.4 10^3/uL (1.8-7.8); NEUTROPHILS % (AUTO) 43 % (42-75); PLATELET COUNT 211 10^3/uL (130-400); WHITE BLOOD COUNT 7.9 10^3/uL (4.3-11.0)
[2020-08-28] MEDS ORDERED: KETOROLAC 30 MG/ML VIAL IVP ONE (23:15)
[2020-08-28 23:18] LABS: ALBUMIN 4.2 GM/DL (3.2-4.5)
[2020-08-28 23:19] LABS: CHLORIDE 107 MMOL/L (98-107); POTASSIUM 4.2 MMOL/L (3.6-5.0); SODIUM 141 MMOL/L (135-145)
[2020-08-28 23:20] LABS: CALCIUM 9.6 MG/DL (8.5-10.1)
[2020-08-28 23:21] LABS: GLUCOSE 88 MG/DL (70-105)
[2020-08-28 23:22] LABS: CARBON DIOXIDE 24 MMOL/L (21-32)
[2020-08-28 23:23] LABS: BILIRUBIN,TOTAL 0.3 MG/DL (0.1-1.0)
[2020-08-28 23:24] LABS: ALKALINE PHOSPHATASE 67 U/L (40-136)
[2020-08-28 23:25] LABS: CREATININE SERUM 0.68 MG/DL (0.60-1.30); GFR ESTIMATED > 60
[2020-08-28 23:26] LABS: BUN/CREATININE RATIO 19
[2020-08-28 23:28] LABS: ALANINE AMINOTRANSFERASE 15 U/L (0-55)
[2020-08-29] MEDS ORDERED: CYCL10TA9 PO (00:40)
[2020-08-29] MEDS ORDERED: NAPR500T8 PO (00:40)
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
[2020-08-29] MEDS ORDERED: RX-CYCLOBENZAPRINE 10 MG (FLEXERIL) TAB PPK#3 PO STA (00:43)
[2020-08-29] MEDS ORDERED: RX-NAPROXEN (NAPROSYN) 250 MG TAB PPK#4 PO STA (00:43)
[2020-08-29 00:53] VITALS: BP 101/70
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
== END 2020-08-29 01:08 | disposition home or self-care (01) ==
LOC: EDUNIT# 22:34 → ER 22:35
DX: S16.1XXA Strain of muscle, fascia and tendon at neck level, initial encounter (principal); S39.012A Strain of muscle, fascia and tendon of lower back, initial encounter; S46.912A Strain of unspecified muscle, fascia and tendon at shoulder and upper arm level, left arm, initial encounter; R68.84 Jaw pain; Z87.891 Personal history of nicotine dependence; V89.2XXA Person injured in unspecified motor-vehicle accident, traffic, initial encounter; Y92.410 Unspecified street and highway as the place of occurrence of the external cause
CPT/HCPCS: 36415; 70450; 70486; 71045; 72125; 72128; 72131; 73030; 80053; 85025; 93005; 93041

== ENCOUNTER → 2021-01-25 | Outpatient (CLI) | payer MEDICAID, OTHER ==
[~2021-01-25] MED LIST changes: +CYCL10TA9 PO; +NAPR500T8 PO
[2021-01-25 12:11] LABS: ALBUMIN 4.4 GM/DL (3.2-4.5); BILIRUBIN,TOTAL 0.5 MG/DL (0.1-1.0); CALCIUM 9.6 MG/DL (8.5-10.1); CREATININE SERUM 0.73 MG/DL (0.60-1.30); POTASSIUM 3.6 MMOL/L (3.6-5.0); TOTAL PROTEIN 7.3 GM/DL (6.4-8.2)
== END ==
LOC: LAB 11:30
PROVIDERS: ATTEND Internal Medicine Cardiovascular Disease
DX: E78.2 Mixed hyperlipidemia (principal); Z79.899 Other long term (current) drug therapy
CPT/HCPCS: 36415; 80053; 80061

== ENCOUNTER → 2021-11-09 | Outpatient (CLI) | payer MEDICAID ==
[~2021-11-09] MED LIST changes: +CYCL10TA25 PO; -CYCL10TA9 PO; -ZONI100C29 PO; +ZONI100C79 PO
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
== END ==
LOC: RAD 10:39
PROVIDERS: ATTEND Family Medicine
DX: M25.531 Pain in right wrist (principal)
CPT/HCPCS: 73110